=== PATIENT | female | born 1985 | race Caucasian/White ===

== ENCOUNTER 2023-08-18 23:34 | Day surgery (SDC) | payer MEDICAID ==
[2023-08-18 23:48] VITALS: BMI 29.9
[2023-08-19] MEDS ORDERED: hydrALAZINE 20 MG/ML VIAL SLOW IVP PRN (00:13)
== END 2023-08-19 03:15 | disposition home or self-care (01) ==
LOC: CSHLD/OP 23:34
PROVIDERS: ATTEND Obstetrics & Gynecology
DX: O47.1 False labor at or after 37 completed weeks of gestation (principal); O09.523 Supervision of elderly multigravida, third trimester; O09.33 Supervision of pregnancy with insufficient antenatal care, third trimester; O99.820 Streptococcus B carrier state complicating pregnancy; Z3A.38 38 weeks gestation of pregnancy
CPT/HCPCS: 36416; 80053; 85025; 99283; 99284

== ENCOUNTER 2023-08-20 21:38 | Inpatient (IN) | payer MEDICAID, OTHER ==
[2023-08-20 21:57] VITALS: BMI 29.9
[2023-08-20] MEDS ORDERED: Tranexamic Acid 1,000 MG/10 ML VIAL IVP PRN (22:54)
[2023-08-20] MEDS ORDERED: Methylergonovine 0.2 MG/ML VIAL IM PRN (22:54)
[2023-08-20] MEDS ORDERED: hydrALAZINE 20 MG/ML VIAL SLOW IVP PRN (22:54)
[2023-08-20] MEDS ORDERED: Misoprostol 200 MCG TAB PR PRN (22:54)
[2023-08-20] MEDS ORDERED: Diphenoxylate HCl/Atropine Tablet PO PRN (22:54)
[2023-08-20] MEDS ORDERED: Carboprost 250 MCG/ML AMP IM PRN (22:54)
[2023-08-20] MEDS ORDERED: Promethazine HCl 25 MG/ML VIAL IM PRN (22:54)
[2023-08-20] MEDS ORDERED: Ondansetron PF 4 MG/2 ML Vial IVP PRN (22:54)
[2023-08-20] MEDS ORDERED: Lidocaine 1% (PF) 30 ML VIAL SC PRN (22:54)
[2023-08-20] MEDS ORDERED: Ibuprofen 800 MG TAB PO PRN (22:54)
[2023-08-20] MEDS ORDERED: Acetaminophen 500 MG TAB PO PRN (22:54)
[2023-08-20] MEDS ORDERED: Penicillin G Potassium 5 MILL.UNITS in Sodium Chloride 0.9% 100 ML IVPB SCH (23:00)
[2023-08-20] MEDS ORDERED: Oxytocin 30 units/NS 500 ML 500 ML IV SCH (23:00)
[2023-08-21 00:03] LABS: Hematocrit 36.5 % (34.9-44.5); Mean Corpuscular HGB CONC 35.6 g/dL (32.0-36.0); Mean Corpuscular Hemoglobin 32.1 pg (27.0-33.0); Mean Corpuscular Volume 90.1 fl (81.6-98.3); Mean Platelet Volume 10.6 fl (7.4-10.4); Platelet Count 205 10x3/uL (150-450); RBC Distribution Width 13.6 % (11.5-14.5); Red Blood Cell (RBC) Count 4.05 10x6/uL (3.90-5.03); White Blood Cell (WBC) Count 7.8 10x3/uL (3.5-10.5)
[2023-08-21 00:41] LABS: Syphilis Antibody Nonreactive (Nonreactive); Syphilis Antibody Index 0.04 S/CO (<1.00 Non-Reactive)
[2023-08-21 00:42] LABS: HBSAg Index 0.26 S/CO (0-0.99); Hep B Surf Ag - L&D Non-Reactive S/CO (NonReactive)
[2023-08-21] MEDS ORDERED: Penicillin G 2.5 MILL.units 2.5 MILL.UNITS in Premix 1 BAG IVPB SCH (03:00)
[2023-08-21] MEDS: Lactated Ringer's 1,000 ML IV SCH (10:28)
[2023-08-21] MEDS: Oxytocin 30 units/NS 500 ML 500 ML IV SCH (10:28)
[2023-08-21] MEDS ORDERED: hydrALAZINE 20 MG/ML VIAL SLOW IVP PRN (18:10)
[2023-08-21] MEDS ORDERED: Bisacodyl 10 MG SUPP PR PRN (18:10)
[2023-08-21] MEDS ORDERED: Benzocaine-Menthol 82.5 ML CAN TOP PRN (18:10)
[2023-08-21] MEDS ORDERED: Milk Of Magnesia 30 ML UDCUP PO PRN (18:10)
[2023-08-21] MEDS ORDERED: HYDROcodone/Acetaminophen 5/325 mg Tablet PO PRN ×2 (18:10)
[2023-08-21] MEDS ORDERED: Oxytocin 30 units/NS 500 ML 500 ML IV SCH (18:10)
[2023-08-21] MEDS ORDERED: Lanolin Ointment 7 GM TUBE TOP PRN (18:10)
[2023-08-21] MEDS ORDERED: Misoprostol 200 MCG TAB VAG PRN (18:10)
[2023-08-21] MEDS: Ferrous Sulfate 325 MG TAB PO SCH (20:15)
[2023-08-21] MEDS: Ibuprofen 800 MG TAB PO SCH (21:11)
[2023-08-21] MEDS: Docusate 100 MG CAP PO SCH (21:11)
[2023-08-22] MEDS: Boostrix 0.5 ML (Tdap) VIAL (>/=7 yrs of age) IM ONE (07:54)
[2023-08-22] MEDS: Ferrous Sulfate 325 MG TAB PO SCH (14:28)
[2023-08-22] MEDS: Prenatal Vitamin 1 TAB PO SCH (14:28)
[2023-08-23 08:05] VITALS: BP 100/52; TEMP 98.6
== END 2023-08-23 17:50 | disposition home or self-care (01) | DRG 807 ==
LOC: CSHLD/OP 21:38 → CSHLD 22:54 → CSHPED 08-21 18:30
PROVIDERS: ADMIT Obstetrics & Gynecology; ATTEND Obstetrics & Gynecology
PROC: 10E0XZZ Delivery of Products of Conception, External Approach (ICD-10-PCS; principal; 2023-08-21)
DX: O24.429 Gestational diabetes mellitus in childbirth, unspecified control (principal); Z37.0 Single live birth; O99.824 Streptococcus B carrier state complicating childbirth; Z3A.38 38 weeks gestation of pregnancy
CPT/HCPCS: 36415; 36416; 80053; 85025; 85027; 86780; 86850; 86870; 86900; 86901; 87340; 99284; 99285; J2590; J7120